=== PATIENT | male | born 1945 | race Caucasian/White ===

== ENCOUNTER 2020-11-30 02:02 | Emergency (ER) | payer MEDICARE, BC ==
[~2020-11-30] VITALS: Ht 177.8 cm; Wt 63.6 kg
[~2020-11-30 02:02] MED LIST: ASPIR-LOW81 MG PO; BIOFLAVONOIDS PO; LOPRESSOR 225 MG/TAB PO; LYCOPENE10 MG PO; NORCO 325 MG-51 TAB PO; SILDENAFIL PO; TOPROL XL25 MG PO
[2020-11-30 02:11] VITALS: TEMP 98.8
[2020-11-30 02:45] LABS: BASO % 0.7 % (0.0-2.0); EOS # 0.1 (0.0-0.7); EOS % 0.8 % (0-4.0); GRAN # 4.1 (1.4-6.5); GRAN % 69.4 % (42.2-75.2); HEMATOCRIT 40.9 % (42.0-52.0); LYMPH % 17.5 % (20.0-51.0); MEAN CELL VOLUME 93 fl (80.0-100.0); MEAN CORPUSCULAR HEMOGLOBIN 32 pg (27.0-31.0); MEAN CORPUSCULAR HGB CONC 34 g/dl (33.0-37.0); MEAN PLATELET VOLUME 10.3 fl (7.4-10.4); MONO # 0.7 (0.1-0.6); MONO % 11.1 % (1.7-9.3); PLATELET COUNT 203 K/mm3 (130-400); RED BLOOD COUNT 4.39 M/mm3 (4.20-5.60)
[2020-11-30 02:53] LABS: INR 1.2 (0.8-3.0); PROTHROMBIN TIME 13.1 SECONDS (9.7-12.8)
[2020-11-30 02:55] LABS: ALANINE AMINOTRANSFERASE 15 U/L (4-49); ALBUMIN 4.2 gm/dL (3.5-5.0); ALKALINE PHOSPHATASE 133 U/L (50-136); ANION GAP 10 mmol/L (7-16); AST,SGOT 32 U/L (15-37); BILIRUBIN,TOTAL 0.9 mg/dL (0.0-1.0); BLOOD UREA NITROGEN 24 mg/dL (9-20); CARBON DIOXIDE 23 mmol/L (22-30); CHLORIDE 104 mmol/L (98-107); CREATINE KINASE 208 U/L (55-170); CREATININE, serum 0.93 (0.66-1.25); GLUCOSE 95 mg/dL (74-106); POTASSIUM 3.7 mmol/L (3.4-5.0); SODIUM 137 mmol/L (137-145); TOTAL PROTEIN 6.8 gm/dL (6.4-8.2)
[2020-11-30 03:07] LABS: TROPONIN-I < 0.012 ng/mL (0.000-0.035)
[2020-11-30] MEDS ORDERED: PRINIVIL5 MG PO (03:28)
[2020-11-30 03:59] VITALS: BP 149/72; PULSE 67
== END 2020-11-30 04:00 | disposition home or self-care (01) ==
LOC: COL.ER 02:02
PROVIDERS: Emergency Medicine
DX: I10 Essential (primary) hypertension (principal); I48.91 Unspecified atrial fibrillation; Z85.46 Personal history of malignant neoplasm of prostate; Z98.890 Other specified postprocedural states

== ENCOUNTER → 2021-01-21 | Outpatient (CLI) | payer MEDICARE, BC ==
[~2021-01-21] MED LIST changes: +PRINIVIL5 MG PO
== END ==
LOC: COL.VAS 12:32
DX: I10 Essential (primary) hypertension (principal); I08.3 Combined rheumatic disorders of mitral, aortic and tricuspid valves

== ENCOUNTER 2024-07-18 17:12 | Emergency (ER) | payer MEDICARE, BC ==
[~2024-07-18] VITALS: Ht 177.8 cm; Wt 65.9 kg
[2024-07-18 17:34] VITALS: TEMP 98
[2024-07-18] MEDS ORDERED: Albuterol/Ipratropium 3 MG-0.5 MG/3 ML Neb Soln IH ONE (19:15)
[2024-07-18 20:08] LABS: BASO % 0.5 % (0.0-2.0); EOS # 0.2 K/mm3 (0.0-0.7); GRAN # 6.2 K/mm3 (1.4-6.5); GRAN % 73.6 % (42.2-75.2); HEMATOCRIT 41.8 % (42.0-52.0); HEMOGLOBIN 14.1 g/dl (13.5-18.0); LYMPH % 12.1 % (20.0-51.0); MEAN CELL VOLUME 98 fl (80.0-100.0); MEAN CORPUSCULAR HEMOGLOBIN 33 pg (27-31); MEAN CORPUSCULAR HGB CONC 34 g/dl (33.0-37.0); MEAN PLATELET VOLUME 10.8 fl (7.4-10.4); MONO % 11.3 % (1.7-9.3); PLATELET COUNT 235 K/mm3 (130-400); RED BLOOD COUNT 4.27 M/mm3 (4.20-5.60); REDCELL DISTRIBUTION WIDTH-CV 12.9 % (11.5-14.5)
[2024-07-18 20:14] LABS: ALANINE AMINOTRANSFERASE 11 U/L (0-55); ALBUMIN 3.6 g/dL (3.4-4.8); ALKALINE PHOSPHATASE 94 U/L (40-150); ANION GAP 10 mmol/L (7-16); AST,SGOT 16 U/L (5-34); BLOOD UREA NITROGEN 16 mg/dL (8-26); C-REACTIVE PROTEIN 5.51 mg/dL (0.00-0.50); CALCIUM 9.7 mg/dL (8.4-10.2); CHLORIDE 100 mEq/L (98-107); GLUCOSE 105 mg/dL (70-99); POTASSIUM 4.5 mEq/L (3.5-4.5); SODIUM 135 mEq/L (136-145); TOTAL PROTEIN 6.8 g/dl (6.2-8.1)
[2024-07-18 20:20] LABS: TROPONIN-I 0.014 ng/mL (0.00-0.033)
[2024-07-18 20:24] LABS: BILIRUBIN,TOTAL < 0.5 mg/dL (0.2-1.2)
[2024-07-18] MEDS ORDERED: Doxycycline Monohydrate 100 MG CAP PO ONE (21:15)
[2024-07-18] MEDS ORDERED: Apixaban 5 MG TABLET PO ONE (21:15)
[2024-07-18] MEDS ORDERED: DOXYCYCLINE 10100 MG PO (21:40)
[2024-07-18] MEDS ORDERED: ELIQUIS 5MG PO (21:40)
[2024-07-18 21:47] LABS: URINE APPEARANCE CLEAR (CLEAR/HAZY); URINE BLOOD 1+ (NEGATIVE); URINE COLOR YELLOW (YELLOW); URINE GLUCOSE NEGATIVE (NEGATIVE); URINE KETONE NEGATIVE (NEGATIVE); URINE NITRATE NEGATIVE (NEGATIVE); URINE PROTEIN(semi-quant) NEGATIVE (NEGATIVE); URINE UROBILINOGEN 0.2 E.U/dL (0.2-1.0)
[2024-07-18 21:53] LABS: COLLECTION METHOD CLEAN CATCH
[2024-07-18 22:12] VITALS: BP 151/95; PULSE 76
== END 2024-07-18 22:16 | disposition home or self-care (01) ==
LOC: COL.ER 17:12
PROVIDERS: Nurse Practitioner
DX: I48.91 Unspecified atrial fibrillation (principal); J18.9 Pneumonia, unspecified organism; Z87.891 Personal history of nicotine dependence

== ENCOUNTER 2024-07-22 12:59 | Emergency (ER) | payer MEDICARE, BC ==
[~2024-07-22] VITALS: Ht 177.8 cm; Wt 65.5 kg
[~2024-07-22 12:59] MED LIST changes: +DOXYCYCLINE 10100 MG PO; +ELIQUIS 5MG PO
[2024-07-22 13:11] VITALS: TEMP 98.5
[2024-07-22 16:54] LABS: HEMATOCRIT 40.4 % (42.0-52.0); HEMOGLOBIN 14.2 g/dl (13.5-18.0); MEAN CELL VOLUME 94 fl (80.0-100.0); MEAN CORPUSCULAR HEMOGLOBIN 33 pg (27-31); MEAN CORPUSCULAR HGB CONC 35 g/dl (33.0-37.0); MEAN PLATELET VOLUME 10.5 fl (7.4-10.4); PLATELET COUNT 263 K/mm3 (130-400); REDCELL DISTRIBUTION WIDTH-CV 12.6 % (11.5-14.5)
[2024-07-22 17:10] LABS: ALBUMIN 3.4 g/dL (3.4-4.8); ALKALINE PHOSPHATASE 85 U/L (40-150); ANION GAP 13 mmol/L (7-16); AST,SGOT 12 U/L (5-34); BILIRUBIN,TOTAL 0.9 mg/dL (0.2-1.2); BLOOD UREA NITROGEN 19 mg/dL (8-26); C-REACTIVE PROTEIN 12.11 mg/dL (0.00-0.50); CALCIUM 9.5 mg/dL (8.4-10.2); CHLORIDE 96 mEq/L (98-107); CREATININE, serum 1.06 mg/dL (0.72-1.25); GLUCOSE 118 mg/dL (70-99); POTASSIUM 4.2 mEq/L (3.5-4.5); SODIUM 132 mEq/L (136-145); TOTAL PROTEIN 6.8 g/dl (6.2-8.1)
[2024-07-22 17:11] LABS: ALANINE AMINOTRANSFERASE < 6 U/L (0-55)
[2024-07-22 17:46] LABS: LYMPHOCYTE 7 % (20.0-51.0); NEUTROPHILS 86 % (42.0-75.2)
[2024-07-22] MEDS ORDERED: CEPHALEXIN500 M1 PO (18:13)
[2024-07-22] MEDS ORDERED: cefTRIAXone 1 G in Water For Injection,Sterile 10 ML IV ONE (18:15)
[2024-07-22 18:34] VITALS: BP 149/89; PULSE 87
== END 2024-07-22 18:34 | disposition home or self-care (01) ==
LOC: COL.ER 12:59
PROVIDERS: Physician Assistant
DX: L03.116 Cellulitis of left lower limb (principal); I48.91 Unspecified atrial fibrillation; Z79.01 Long term (current) use of anticoagulants